=== PATIENT | male | born 1975 | race African-American/Black ===

== ENCOUNTER 2016-10-06 21:52 | Inpatient (IN) | payer SELFPAY ==
[~2016-10-06] VITALS: Ht 190.5 cm; Wt 104.5 kg
[~2016-10-06 21:52] MED LIST: AUGM875T PO; IBUP800T23 PO; ZITH250T PO
[2016-10-06 22:00] VITALS: BP 154/83; PULSE 88; RESP 20; TEMP 99.2; O2SAT 100
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
[2016-10-06 22:28] LABS: AUTOMATED NEUTROPHIL # 4.4 TH/MM3 (1.8-7.7); BASOPHIL # 0.1 TH/MM3 (0-0.2); BASOPHIL % 0.7 % (0.0-2.0); EOSINOPHIL # 0.3 TH/MM3 (0-0.4); EOSINOPHIL % 3.1 % (0.0-4.0); LYMPH % 46.7 % (9.0-44.0); LYMPHOCYTE # 4.7 TH/MM3 (1.0-4.8); MEAN CELL VOLUME 74.4 FL (80.0-100.0); MEAN CORPUSCULAR HEMOGLOBIN 23.9 PG (27.0-34.0); MEAN CORPUSCULAR HGB CONC 32.2 % (32.0-36.0); MONO % 5.5 % (0.0-8.0); PLATELET COUNT 193 TH/MM3 (150-450); RED BLOOD COUNT 5.65 MIL/MM3 (4.50-5.90); RED CELL DISTRIBUTION WIDTH 13.9 % (11.6-17.2); WHITE BLOOD COUNT 10.1 TH/MM3 (4.0-11.0)
[2016-10-06 22:33] LABS: HEMO FLAGS AUTO DIFF
[2016-10-06 22:44] LABS: BICARBONATE 27.4 MEQ/L (21.0-32.0); POTASSIUM 3.3 MEQ/L (3.5-5.1); PROTHROMBIN TIME - PATIENT 10.6 SEC (9.8-11.6)
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
[2016-10-06 22:58] LABS: OVALOCYTES 1+ (NORMAL); SCAN/DIFF AUTO DIFF CONFIRMED
[2016-10-06] MEDS ORDERED: POTASSIUM CHLORIDE 20 MEQ CONTROLLED RELEASE TAB PO ONE (23:30)
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
[2016-10-06] MEDS ORDERED: ONDANSETRON HCL 4 MG/2 ML VIAL IV PUSH ONE (23:45)
[2016-10-06] MEDS ORDERED: SODIUM CHLOR 0.9% 1000 ML INJ 1,000 ML IV SCH (23:45)
[2016-10-06] MEDS ORDERED: MORPHINE SULFATE 4 MG/ML INJ IV PUSH ONE (23:45)
[2016-10-07] MEDS ORDERED: SODIUM CHLORIDE 0.9% FLUSH 10 ML FLUSH IVF PRN (00:15)
[2016-10-07] MEDS ORDERED: ceFAZolin INJ 500 MG in SODIUM CHLORIDE 0.9% INJ 100 ML IV ONE (00:15)
--- NOTE | 2016-10-07 00:24 | HHI.HP ---
General Surgery H&P H&P [facility] [id number] Corey Bella MD October 07, 2016 00:24
[2016-10-07] MEDS ORDERED: MAGNESIUM HYDROXIDE SUSP 30 ML CUP PO PRN (00:30)
[2016-10-07] MEDS ORDERED: ONDANSETRON HCL 4 MG/2 ML VIAL IV PRN (00:30)
[2016-10-07] MEDS ORDERED: SODIUM CHLORIDE 0.9% FLUSH 10 ML FLUSH IV FLUSH PRN (00:30)
[2016-10-07] MEDS ORDERED: ACETAMINOPHEN 325 MG TAB PO PRN (00:30)
[2016-10-07] MEDS ORDERED: MISCELLANEOUS NURSING INFORMATION XX SCH (00:30)
[2016-10-07] MEDS ORDERED: HYDROmorphone HCL PF 1 MG/ML VIAL IVP PRN (00:30)
[2016-10-07] MEDS ORDERED: CHLORHEXIDINE GLUCONATE 2 % 1 PACK (2 CLOTHS) TOP PRN (00:30)
[2016-10-07] MEDS ORDERED: ENALAPRILAT 1.25 MG/ML VIAL IV PRN (00:30)
[2016-10-07] MEDS ORDERED: IOHEXOL 350 MG/ML 10 ML VIAL (for RAD DIAG) IV ONE (00:44)
[2016-10-07] MEDS ORDERED: PANTOPRAZOLE SODIUM 40 MG VIAL IVP SCH (01:00)
[2016-10-07] MEDS: SODIUM CHLOR 0.9% 1000 ML INJ 1,000 ML IV SCH ×2 (01:03→03:13)
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
[2016-10-07 01:59] VITALS: BP 137/85; PULSE 88; RESP 18; TEMP 98; O2SAT 97
[2016-10-07] MEDS ORDERED: ENOXAPARIN SODIUM 30 MG/0.3 ML SYRINGE SQ SCH (02:00)
[2016-10-07] MEDS ORDERED: MULTIVITAMIN INJ 10 ML, THIAMINE INJ 100 MG, FOLIC ACID INJ 1 MG in SODIUM CHLORID 0.9%... IV SCH (03:00)
[2016-10-07 03:01] VITALS: BP 130/74; PULSE 84; RESP 18; TEMP 97.5; O2SAT 97
[2016-10-07] MEDS ORDERED: CHLORHEXIDINE GLUCONATE 2 % 1 PACK (2 CLOTHS) TOP SCH (04:00)
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
[2016-10-07 08:20] VITALS: BP 156/91; PULSE 75; RESP 18; TEMP 97.8; O2SAT 98
[2016-10-07] MEDS ORDERED: BACITRACIN TOP OINT 15 GM TUBE TOP SCH (09:00)
[2016-10-07] MEDS ORDERED: SODIUM CHLORIDE 0.9% FLUSH 10 ML FLUSH IV FLUSH SCH (09:00)
[2016-10-07] MEDS ORDERED: GABAPENTIN 300 MG CAP PO SCH (09:00)
[2016-10-07] MEDS ORDERED: DOCUSATE SODIUM 50 MG/SENNA 8.6 MG TAB PO SCH (09:00)
[2016-10-07] MEDS ORDERED: DOCUSATE SODIUM 100 MG CAP PO SCH (09:00)
[2016-10-07 09:14] LABS: AUTOMATED NEUTROPHIL # 5.8 TH/MM3 (1.8-7.7); BASOPHIL # 0.1 TH/MM3 (0-0.2); BASOPHIL % 1.1 % (0.0-2.0); EOSINOPHIL # 0.1 TH/MM3 (0-0.4); EOSINOPHIL % 1.7 % (0.0-4.0); HEMATOCRIT 40.5 % (39.0-51.0); LYMPH % 25.3 % (9.0-44.0); LYMPHOCYTE # 2.3 TH/MM3 (1.0-4.8); MEAN CELL VOLUME 73.9 FL (80.0-100.0); MEAN CORPUSCULAR HEMOGLOBIN 23.6 PG (27.0-34.0); MEAN CORPUSCULAR HGB CONC 31.9 % (32.0-36.0); MONO % 7.4 % (0.0-8.0); NEUT % 64.5 % (16.0-70.0); PLATELET COUNT 178 TH/MM3 (150-450); RED BLOOD COUNT 5.48 MIL/MM3 (4.50-5.90); RED CELL DISTRIBUTION WIDTH 14.1 % (11.6-17.2)
[2016-10-07 09:20] LABS: HEMO FLAGS AUTO DIFF
[2016-10-07 09:31] LABS: ANION GAP 8 MEQ/L (5-15); BICARBONATE 24.9 MEQ/L (21.0-32.0); BLOOD UREA NITROGEN 6 MG/DL (7-18); CHLORIDE 108 MEQ/L (98-107); GLOMERULAR FILTRATION RATE 106 ML/MIN (>89); POTASSIUM 3.9 MEQ/L (3.5-5.1); SODIUM (NA) 141 MEQ/L (136-145)
[2016-10-07 09:38] LABS: ALKALINE PHOSPHATASE 53 U/L (45-117); ALT (GPT) 55 U/L (12-78); AST (GOT) 43 U/L (15-37); TOTAL BILIRUBIN ADULT 0.5 MG/DL (0.2-1.0)
[2016-10-07 09:55] LABS: SCAN/DIFF AUTO DIFF CONFIRMED
[2016-10-07] MEDS ORDERED: PERC5TAB12 PO (10:15)
[2016-10-07] MEDS ORDERED: CRUTMIS3 (10:55)
[2016-10-07] MEDS ORDERED: CEPH-460 PO (10:56)
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
== END 2016-10-07 12:50 | disposition home or self-care (01) | DRG 605 ==
LOC: NEPE 21:52 → NEDA 23:47 → OBSVTOIN 10-07 00:21 → NEPHCDU 10-07 01:34 → N06B 10-07 02:55
PROVIDERS: ADMIT Surgery; ATTEND Surgery
DX: S81.831A Puncture wound without foreign body, right lower leg, initial encounter (principal); F17.210 Nicotine dependence, cigarettes, uncomplicated; Y93.89 Activity, other specified; Y92.009 Unspecified place in unspecified non-institutional (private) residence as the place of occurrence of the external cause; Y99.9 Unspecified external cause status; R20.2 Paresthesia of skin; R20.0 Anesthesia of skin; W34.00XA Accidental discharge from unspecified firearms or gun, initial encounter
CPT/HCPCS: 73590; 75635; 80048; 80053; 85025; 85610; 85730; 96365; 96375; C9113; E0113; J0690; J1650; J2270; J2405; J3411; J7030; J7040; Q9967